=== PATIENT | female | born 1955 | race Caucasian/White ===

== ENCOUNTER 2018-09-01 14:22 | Emergency (ER) | payer OTHER, MEDICAID ==
[2018-09-01] MEDS: FENTAnyl 50 MCG/ML VIAL IV ×2 (14:49→16:45)
[2018-09-01] MEDS: ONDANSETRON 4 MG INJ IV (17:40)
[2018-09-01 18:49] LABS: ADD MAN DIFF? NO
[2018-09-01 18:54] LABS: BASOPHILS % 0.4 % (0.0-2.0); EOSINOPHILS % 0.5 % (0.0-7.0); HEMATOCRIT 43.9 % (37.0-47.0); HEMOGLOBIN 14.3 g/dl (12.0-16.0); LYMPHOCYTES # 0.8 10^3/ul (0.8-2.9); LYMPHOCYTES % 9.6 % (15.0-51.0); MEAN CORPUSCULAR HEMOGLOBIN 29.2 pg (29.0-33.0); MEAN CORPUSCULAR HGB CONC 32.6 g/dl (32.0-37.0); MEAN CORPUSCULAR VOLUME 89.8 fl (82.0-101.0); MEAN PLATELET VOLUME 11.2 fl (7.4-10.4); MONOCYTE # 0.5 10^3/ul (0.3-0.9); MONOCYTES % 5.5 % (0.0-11.0); NEUTROPHIL # 7.1 10^3/ul (1.6-7.5); NEUTROPHILS % 83.5 % (39.0-77.0); PLATELET COUNT 130 10^3/UL (140-415); RED BLOOD COUNT 4.89 10^6/ul (4.20-5.40); RED CELL DISTRIBUTION WIDTH 13.3 % (11.5-14.5)
[2018-09-01 18:54] LABS: WHITE BLOOD COUNT 8.5 10^3/ul (4.8-10.8)
[2018-09-01] MEDS: SOD CHLORIDE 0.9% 500 ML IV (19:04)
[2018-09-01] MEDS: METOCLOPRAMIDE 10 MG INJ IV (19:05)
[2018-09-01 19:10] LABS: ANION GAP 10 (5-13); BLOOD UREA NITROGEN 12 mg/dl (7-20); CALCIUM 9.7 mg/dl (8.4-10.2); CARBON DIOXIDE 24 mmol/L (21-31); CHLORIDE 106 mmol/L (97-110); CREATININE 0.52 mg/dl (0.44-1.00); Estimated GFR > 60 mL/min (>60); GLUCOSE 143 mg/dl (70-220); POTASSIUM 4.2 mmol/L (3.5-5.1); SODIUM 140 mmol/L (135-144)
[2018-09-01] MEDS: NICARDipine HCL 30 MG CAPSULE PO (19:57)
== END 2018-09-01 21:04 | disposition home or self-care (01) ==
LOC: E/R 14:22
DX: S42.215A Unspecified nondisplaced fracture of surgical neck of left humerus, initial encounter for closed fracture (principal); S00.83XA Contusion of other part of head, initial encounter; S62.102A Fracture of unspecified carpal bone, left wrist, initial encounter for closed fracture; R40.2142 Coma scale, eyes open, spontaneous, at arrival to emergency department; R40.2252 Coma scale, best verbal response, oriented, at arrival to emergency department; R40.2362 Coma scale, best motor response, obeys commands, at arrival to emergency department; I10 Essential (primary) hypertension; W01.0XXA Fall on same level from slipping, tripping and stumbling without subsequent striking against object, initial encounter; Y92.9 Unspecified place or not applicable; Z86.73 Personal history of transient ischemic attack (TIA), and cerebral infarction without residual deficits
CPT/HCPCS: 36415; 70450; 73030; 73060; 73080-LT; 73090; 73110-LT; 80048; 85025; 93005; 96374; 96375; 96376; 99285-25

== ENCOUNTER 2019-03-20 21:31 | Emergency (ER) | payer OTHER ==
[2019-03-20] MEDS: CEPHALEXIN 500 MG CAP PO (23:59)
[2019-03-20] MEDS: OXYCODONE/ACETAMINOPHEN (5/325) TAB PO (23:59)
== END 2019-03-21 00:55 | disposition home or self-care (01) ==
LOC: E/R 03-21 00:55
DX: M25.562 Pain in left knee (principal); I10 Essential (primary) hypertension; Z86.73 Personal history of transient ischemic attack (TIA), and cerebral infarction without residual deficits
CPT/HCPCS: 73562; 99283-25